=== PATIENT | female | born 1985 | race Caucasian/White ===

== ENCOUNTER 2018-01-08 07:51 | Emergency (ER) | payer MEDICARE, MEDICAID ==
[~2018-01-08] VITALS: Ht 165.1 cm; Wt 145.0 kg
[~2018-01-08 07:51] MED LIST: AMOX500C2 PO; BACDS PO; BENZ-16 PO; CYCL-394 PO; GUAI600T PO; HYDR1TAB PO; NO HOME MEDS; PRED20TA PO; SULF5DRO OP
[2018-01-08] MEDS ORDERED: AZIT250T PO (08:16)
[2018-01-08 08:24] VITALS: BP 133/88
== END 2018-01-08 08:25 | disposition home or self-care (01) ==
LOC: ER 07:52
DX: J06.9 Acute upper respiratory infection, unspecified (principal); I10 Essential (primary) hypertension; J44.9 Chronic obstructive pulmonary disease, unspecified; G89.29 Other chronic pain; Z90.49 Acquired absence of other specified parts of digestive tract; Z79.899 Other long term (current) drug therapy
CPT/HCPCS: 99283

== ENCOUNTER 2019-08-04 10:52 | Emergency (ER) | payer MEDICARE, MEDICAID ==
[~2019-08-04] VITALS: Ht 165.1 cm; Wt 145.4 kg
[~2019-08-04 10:52] MED LIST changes: +AZIT250T PO
[2019-08-04 11:10] VITALS: BP 160/94
--- NOTE | 2019-08-04 11:22 | NUR ---
PT HAS BEEN IN PAIN LAST 3 DAYS. STATES PAIN STARTING RIGHT LOWER BACK AND RADIATING DOWN RIGHT LEG.
[2019-08-04] MEDS ORDERED: ketorolac trometh inj. 60 MG/2 ML VIAL IM ONE (11:30)
== END 2019-08-04 11:50 | disposition home or self-care (01) ==
LOC: ER 10:53
DX: M54.41 Lumbago with sciatica, right side (principal); E66.01 Morbid (severe) obesity due to excess calories; I10 Essential (primary) hypertension; J44.9 Chronic obstructive pulmonary disease, unspecified; G47.30 Sleep apnea, unspecified; G89.29 Other chronic pain; F31.9 Bipolar disorder, unspecified; Z90.49 Acquired absence of other specified parts of digestive tract; Z98.890 Other specified postprocedural states; Z79.2 Long term (current) use of antibiotics; Z79.899 Other long term (current) drug therapy
CPT/HCPCS: 96372; 99283; J1885

== ENCOUNTER 2019-08-06 12:57 | Emergency (ER) | payer MEDICARE, MEDICAID ==
[~2019-08-06] VITALS: Ht 165.1 cm; Wt 143.0 kg
--- NOTE | 2019-08-06 14:23 | NUR ---
PT INFOMRED NEED A URINE SAMLE, PT WANT MOTHER TO WIPE FOR CLEAN CATCH BUT MOTHER HAS LEFT BEDSIDE, DR LYON INFORMED AND STATES URINE VOID OK WANT TO CHECK HCG, PT AMBULATORY TO BATHROOM WITH STEADY GAIT AND PROVIDED URINE SAMPLE, SENT SAMPLE TO LAB
[2019-08-06] MEDS ORDERED: morphine 4 MG/ML inj SYRINge IM ONE ×2 (14:40→17:15)
[2019-08-06] MEDS ORDERED: ketorolac trometh inj. 60 MG/2 ML VIAL IM ONE (14:40)
[2019-08-06 14:41] LABS: CLARITY,URINE SLIGHTLY CLOUDY (Clear); COLOR,URINE YELLOW (Yellow); GLUCOSE, URINE NEGATIVE (Neg); KETONES,URINE >=80 mg/dl (Neg); LEUKOCYTE ESTERASE ,URINE NEGATIVE (Neg); NITRITES, URINE NEGATIVE (Neg); OCCULT BLOOD,URINE NEGATIVE (Neg); PROTEIN,URINE NEGATIVE (Neg); UA COLLECTION TYPE VOIDED; UROBILINOGEN,URINE 0.2 E.U/dL (0.2-1.0)
[2019-08-06 14:46] LABS: MUCUS STRANDS MODERATE /LPF (Neg); URINE HCG NEGATIVE (NEG)
[2019-08-06 14:49] LABS: BACTERIA,URINE 1+ /HPF (Neg); RBC,URINE 0-2 /HPF (0-2); SQUAMOUS EPITHELIAL CELL,UR MANY /LPF (FEW)
[2019-08-06 14:58] LABS: WBC,URINE 0-4 /HPF (0-4)
--- NOTE | 2019-08-06 19:50 | NUR ---
PT DISCHARGED HOME STATED " MD SAID I WOULD BE GETTING A PRESCRIPTION FOR PAIN MAMNGEMENT" NOTIFIED DR JHA WHO VERBALIZED PT WAS CORRECT AND HE WOULD SPEAK WITH HER AND GET LASH[facility] PRESCRIPTION READY .
[2019-08-06] MEDS ORDERED: OXYC-658 PO (19:54)
[2019-08-06 23:40] VITALS: BP 146/73
== END 2019-08-06 19:50 | disposition home or self-care (01) ==
LOC: ER 12:57
DX: M54.5 Low back pain (principal); I10 Essential (primary) hypertension; J44.9 Chronic obstructive pulmonary disease, unspecified; G47.30 Sleep apnea, unspecified; G89.29 Other chronic pain; F31.9 Bipolar disorder, unspecified; Z90.49 Acquired absence of other specified parts of digestive tract; Z98.890 Other specified postprocedural states; Z79.2 Long term (current) use of antibiotics; Z79.899 Other long term (current) drug therapy
CPT/HCPCS: 72148; 81001; 81025; 96372; 99284; J1885; J2270; 99283

== ENCOUNTER 2019-10-31 20:50 | Emergency (ER) | payer MEDICARE, MEDICAID ==
[~2019-10-31] VITALS: Ht 165.1 cm; Wt 141.7 kg
[2019-10-31] MEDS ORDERED: TETanus/Pertussis (Acell)/Diphther VAC/PF (Tdap-Adult) 0.5ml syringe IMVAC ONE (21:15)
[2019-10-31 21:50] VITALS: BP 126/63
== END 2019-10-31 21:44 | disposition home or self-care (01) ==
LOC: ER 21:01
DX: S61.215A Laceration without foreign body of left ring finger without damage to nail, initial encounter (principal); I10 Essential (primary) hypertension; J44.9 Chronic obstructive pulmonary disease, unspecified; G89.29 Other chronic pain; F31.9 Bipolar disorder, unspecified; F10.99 Alcohol use, unspecified with unspecified alcohol-induced disorder; G47.30 Sleep apnea, unspecified; Z90.49 Acquired absence of other specified parts of digestive tract; Z98.890 Other specified postprocedural states; Z79.899 Other long term (current) drug therapy; W25.XXXA Contact with sharp glass, initial encounter; Y93.89 Activity, other specified; Y92.89 Other specified places as the place of occurrence of the external cause; Y99.8 Other external cause status; Y90.9 Presence of alcohol in blood, level not specified
CPT/HCPCS: 12001; 90471; 90715; 99283

== ENCOUNTER 2021-08-11 18:22 | Emergency (ER) | payer MEDICARE, MEDICAID ==
[~2021-08-11] VITALS: Ht 165.1 cm; Wt 150.0 kg
[~2021-08-11 18:22] MED LIST changes: -BACDS PO; +SULF1TAB45 PO
[2021-08-11] MEDS ORDERED: acetaminophen 325mg tablet PO ONE (19:05)
[2021-08-11 19:10] VITALS: BP 118/79
[2021-08-11] MEDS ORDERED: BENZ-16 PO (19:12)
[2021-08-11] MEDS ORDERED: ROBCFL PO (19:21)
--- NOTE | 2021-08-11 19:24 | NUR ---
Pt given and understands d/c instructions. Ambulatory with a steady gait.
== END 2021-08-11 19:20 | disposition home or self-care (01) ==
LOC: ER 18:23
DX: U07.1 COVID-19 (principal); R06.02 Shortness of breath; R05 Cough; I10 Essential (primary) hypertension; J44.9 Chronic obstructive pulmonary disease, unspecified; G89.29 Other chronic pain; F31.9 Bipolar disorder, unspecified; Z90.49 Acquired absence of other specified parts of digestive tract; Z98.890 Other specified postprocedural states; Z72.89 Other problems related to lifestyle; Z79.2 Long term (current) use of antibiotics; Z79.899 Other long term (current) drug therapy
CPT/HCPCS: 71045; 99283

== ENCOUNTER 2022-11-27 11:22 | Emergency (ER) | payer MEDICARE, MEDICAID ==
[~2022-11-27] VITALS: Ht 165.1 cm; Wt 143.2 kg
[2022-11-27 11:26] VITALS: BP 134/89
[2022-11-27] MEDS ORDERED: BENZ-38 PO (12:53)
[2022-11-27] MEDS ORDERED: ALBU6.7H14 INH (12:53)
[2022-11-27] MEDS ORDERED: AMOX-117 PO (12:53)
[2022-11-27] MEDS ORDERED: PRED20TA PO (12:53)
== END 2022-11-27 13:06 | disposition home or self-care (01) ==
LOC: ER 11:22
DX: J20.9 Acute bronchitis, unspecified (principal); I10 Essential (primary) hypertension; J44.9 Chronic obstructive pulmonary disease, unspecified; G89.29 Other chronic pain; M54.9 Dorsalgia, unspecified; F31.9 Bipolar disorder, unspecified; Z90.49 Acquired absence of other specified parts of digestive tract; Z98.890 Other specified postprocedural states; Z79.899 Other long term (current) drug therapy; Z79.1 Long term (current) use of non-steroidal anti-inflammatories (NSAID); Z79.2 Long term (current) use of antibiotics
CPT/HCPCS: 71046; 99283